=== PATIENT | male | born 1950 | race Caucasian/White ===

== ENCOUNTER 2017-03-01 08:08 | Emergency (ER) | payer MEDICARE, OTHER ==
[~2017-03-01] VITALS: Ht 180.3 cm; Wt 85.7 kg
[~2017-03-01 08:08] MED LIST: ACETAMINOPHEN500 MG PO; ACYCLOVIR400 MG PO; ACYCLOVIR800 MG PO; ATORVASTATIN CA40 MG PO; AZITHROMYCIN250 MG PO; BUPROPION XL150 MG PO; CLONAZEPAM2 MG PO; COREG25 MG PO; COUMADIN6 MG PO; DIGOXIN250 MCG PO; GLUCOPHAGE XR500 MG PO; LASIX40 MG PO; LEVAQUIN500 MG PO; METFORMIN HCL500 M1 PO; METFORMIN HCL500 MG PO; NITROSTAT0.4 MG SL; PRAVACHOL40 MG PO; PREDNISONE20 MG PO; PROVENTIL HFA6.7 GM INH; RAMIPRIL10 MG PO; TAMSULOSIN HCL0.4 MG PO; THERAPEUTIC M1 EAC2 PO; TRAMADOL HCL50 MG PO; VITAMIN D5000 UNIT PO
[2017-03-01] MEDS ORDERED: GLIMEPIRIDE1 MG PO (08:42)
[2017-03-01] MEDS ORDERED: ELIQUIS5 MG PO (08:42)
[2017-03-01] MEDS ORDERED: PRAMIPEXOLE D0.25 MG PO (08:43)
[2017-03-01] MEDS ORDERED: MIRAPEX0.125 MG PO (08:43)
[2017-03-01] MEDS ORDERED: PREDNISONE20 MG PO (14:02)
[2017-03-01] MEDS ORDERED: ZITHROMAX250 MG PO (14:02)
--- NOTE | 2017-03-03 08:02 | EKG ---
[facility] [address] [place] [address] Signed Atrial-sensed ventricular-paced rhythm with premature atrial complexes with aberrant conduction Biventricular pacemaker detected Abnormal ECG Confirmed by LANE JOLLEY MD ([id number]) on 03/03/2017 8:02:14 AM Electronically Signed By: LANE JOLLEY MD 03/03/17 0802 PATIENT NAME: AMELIEROMINA CARTER Electrocardiogram DATE OF : 46 PHYSICIAN: LANE JOLLEY MD REPORT #: [id number] REPORT IS CONFIDENTIAL AND NOT TO BE RELEASED WITHOUT AUTHORIZATION
== END 2017-03-01 14:21 | disposition home or self-care (01) ==
LOC: ED 08:08
DX: J44.1 Chronic obstructive pulmonary disease with (acute) exacerbation (principal); E11.9 Type 2 diabetes mellitus without complications; I10 Essential (primary) hypertension; I25.2 Old myocardial infarction; I48.91 Unspecified atrial fibrillation; Z95.0 Presence of cardiac pacemaker; F17.200 Nicotine dependence, unspecified, uncomplicated; Z95.5 Presence of coronary angioplasty implant and graft; Z95.1 Presence of aortocoronary bypass graft; Z79.899 Other long term (current) drug therapy; Z79.84 Long term (current) use of oral hypoglycemic drugs
CPT/HCPCS: 36415; 71010; 80053; 81001; 83605; 84132; 85025; 85730; 93005; 93010; 94660; 96374; 96375; 99291; J2270

== ENCOUNTER 2018-10-02 14:11 | Inpatient (IN) | payer MEDICARE, OTHER ==
[~2018-10-02] VITALS: Ht 180.3 cm; Wt 8.4 kg
--- OUTSIDE RECORDS SUMMARY | ~2018-10-02 | XMS | Clinical Summary ---
Demographics + + + | Address | [address] | | | [place] [address] | + + + | Home Phone | | + + + | Preferred Language | Unknown | + + + | Marital Status | Unknown | + + + | Scientologist Affiliation | Unknown | + + + | Race | Unknown | + + + | Ethnic Group | Unknown | + + + Author + + + | Author | [facility] [employer] [facility] | + + + | Organization | [facility] [facility] | + + + | Address | Unknown | + + + | Phone | Unavailable | + + + Support + + +---------+ + | Name | Relationship | Address | Phone | + + +---------+ + | Clara Ibanez | ECON | Unknown | | + + +---------+ + Care Team Providers + +------+ + | Care Refractory Furnace Designer Name | Role | Phone | + +------+ + | Kurt Hardy DO | PP | | + +------+ + Allergies No Known Allergies Current Medications + + +--------+---------+------+------+-------+ | Prescription | Sig. | Disp. | Refills | Star | End | Statu | | | | | | t | Date | s | | | | | | Date | | | + + +--------+---------+------+------+-------+ | Multiple | Take by mouth | | | | | Activ | | Vitamins-Minerals | daily. | | | | | e | | (CENTRUM SILVER PO) | | | | | | | + + +--------+---------+------+------+-------+ | ramipril (ALTACE) | Take 10 mg by mouth | | | | | Activ | | 10 MG capsule | 2 (two) times daily. | | | | | e | + + +--------+---------+------+------+-------+ | buPROPion | Take 150 mg by mouth | | | | | Activ | | (WELLBUTRIN XL) 150 | every morning. | | | | | e | | MG 24 hr tablet | | | | | | | + + +--------+---------+------+------+-------+ | metFORMIN | Take 500 mg by mouth | | | | | Activ | | (GLUCOPHAGE) 500 MG | 2 (two) times daily | | | | | e | | tablet | with meals. | | | | | | + + +--------+---------+------+------+-------+ | tamsulosin | Take 0.4 mg by mouth | | | | | Activ | | (FLOMAX) 0.4 MG | After dinner. | | | | | e | | capsule | | | | | | | + + +--------+---------+------+------+-------+ | atorvastatin | Take 40 mg by mouth | | | | | Activ | | (LIPITOR) 40 MG | nightly. | | | | | e | | tablet | | | | | | | + + +--------+---------+------+------+-------+ | digoxin (LANOXIN) | Take 250 mcg by | | | | | Activ | | 0.25 MG tablet | mouth daily. | | | | | e | + + +--------+---------+------+------+-------+ | furosemide (LASIX) | Take 40 mg by mouth | | | | | Activ | | 40 MG tablet | daily. | | | | | e | + + +--------+---------+------+------+-------+ | carvedilol (COREG) | Take 25 mg by mouth | | | | | Activ | | 25 MG tablet | 2 (two) times daily | | | | | e | | | with meals. | | | | | | + + +--------+---------+------+------+-------+ | clonazePAM | Take 2 mg by mouth | | | | | Activ | | (KLONOPIN) 2 MG | nightly as needed | | | | | e | | tablet | for Anxiety. | | | | | | + + +--------+---------+------+------+-------+ | apixaban (ELIQUIS) | Take 1 tablet by | 60 | 11 | 10/16 | | Activ | | 5 MG tablet | mouth 2 (two) times | tablet | | 12/03 | | e | | | daily. | | | 16 | | | + + +--------+---------+------+------+-------+ Active Problems + + + | Problem | Noted Date | + + + | Coronary artery disease involving coronary bypass graft of [place] | 08/08/2015 | | heart with angina pectoris (HCC) | | + + + + + | Last Assessment & Plan: CAD, Hx DC, Hx CABG, LVEF 53%. | | 65yo WM, with known coronary artery disease, coronary artery | | bypass surgery at age of 37 ([place], [place]). He has a CAD OPERATOR-D | | device. Is in chronic Atrial fibrillation, anticoagulated. He | | is relatively active, admits some degree of exertional shortness | | of breath, fatigue from time to time, unaware of any significant | | chest discomfort. Unaware of any palpitations, or | | lightheadedness. Denies any new visual disturbances, dysarthria, | | dysphasia, lateralizing signs or symptoms. No significant | | bleeding or bruising. No shocks from his device. We are still | | waiting for his old records. We scheduled him for device clinic | | follow-up. At his request, we changed him from warfarin to | | Eliquis 5 mg BID.Hx CABG: CABG*1986 ([facility])Hx PCI/stent: | | noHx Pacemaker/ICD: 09/02/2009, Medtronic Consulta CAD OPERATOR-D [id number], | | SN: [id number].Last Cath: Echo, 08/14/2015 [facility]): LVEDd 63mm, inferior hypokinesis, EF 53%, moderate | | LAE, mild NATALI, mild RVE, pacing catheter in RV, mild MR, mild TR, | | mild PI, estimated systolic PAP 28-33mmHgLast Stress Test, | | 09/04/2015 ([facility]): Lexiscan, suggestive of dilated | | cardiomyopathy, LVEF 31%, equivocal tiny area of ischemia in the | | inferior wall.ECG, 08/08/2015: V-paced 100%, no Atrial activity | | identified. | + + + + + | Chronic atrial fibrillation (HCC) | 08/08/2015 | + + + + + | Last Assessment & Plan: Atrial fibrillation, chronic, was on | | warfarin, but requesting change, having difficulty with | | stability. Today we DC'd the warfarin, placed him on Eliquis 5 | | mg twice daily. CHADS2 Score 3 (CHF, HTN, DM). Denies any new | | visual disturbances, dysarthria, dysphasia, lateralizing signs or | | symptoms. No significant bleeding or bruising. | + + + + + | HTN (hypertension) | 08/08/2015 | + + + + + | Last Assessment & Plan: Hypertension, controlled, continue | | current meds at current doses (carvedilol, furosemide, ramipril). | + + + + + | Hyperlipidemia | 08/08/2015 | + + + + + | Last Assessment & Plan: Hyperlipidemia, continue current meds | | at current dose (atorvastatin). Lab, 07/11/2015: Liver enzymes | | NML, K: 4.8, BUN/Cr: 24/1.3 (GFR 52), glu: 196 | | BNP: 69. HgbA1c: 8.7, WBC: 6.0, H/H: 15.3/45.7, plt: | | 278Lab, 08/26/2015: T Chol: 152, LDL-Chol: 57, HDL-Chol; 45, Trig: | | 253 | + + + + + | Diabetes mellitus (HCC) | 08/08/2015 | + + + + + | Last Assessment & Plan: DM2, managed by PCP. | + + + + + | ICD (implantable cardioverter-defibrillator), biventricular, in | 08/08/2015 | | situ | | + + + + + | Last Assessment & Plan: CAD OPERATOR-D, implanted 09/02/2009. | | Medtronic Consulta CAD OPERATOR-D [id number], SN: [id number].Last | | interrogation ? Will arrange for follow-up. | + + Family History + +------+ + + | Relation | Name | Status | Comments | + +------+ + + | Brother | | | open heart | | | | (Age | | | | | 70) | | + +------+ + + | Father | | | DC-aneurysm | | | | (Age | | | | | 78) | | + +------+ + + | Mother | | | cancer | | | | (Age | | | | | 50) | | + +------+ + + Social History + + + +--------+ + | Tobacco Use | Types | Packs/Day | Years | Date | | | | | Used | | + + + +--------+ + | Former Smoker | Cigarettes | 2 | 38 | Quit: 05/17/2015 | + + + +--------+ + + +------+---+---+ | Smokeless Tobacco: | Chew | | | | Current User | | | | + +------+---+---+ + + +---------+ + | Alcohol Use | Drinks/We | oz/Week | Comments | | | ek | | | + + +---------+ + | Yes | 1 | 0.6 | beer-twice month | | | Standard | | | | | drinks or | | | | | | | | | | equivalen | | | | | t | | | + + +---------+ + + + + | Sex Assigned at | Date Recorded | | | | + + + | Not on file | | + + + Last Filed Vital Signs + + + + | Vital Sign | Reading | Time Taken | + + + + | Blood Pressure | 132/70 | 09/11/2015 11:43 AM PDT | + + + + | Pulse | 74 | 09/11/2015 11:43 AM PDT | + + + + | Temperature | - | - | + + + + | Respiratory Rate | 16 | 09/11/2015 11:43 AM PDT | + + + + | Oxygen Saturation | 96% | 09/11/2015 11:43 AM PDT | + + + + | Inhaled Oxygen | - | - | | Concentration | | | + + + + | Weight | 88.4 kg (194 lb 14.4 | 09/11/2015 11:43 AM PDT | | | oz) | | + + + + | Height | 182.9 cm (6') | 09/11/2015 11:43 AM PDT | + + + + | Body Mass Index | 26.43 | 09/11/2015 11:43 AM PDT | + + + + Plan of Treatment + + + + + | Health Maintenance | Due Date | Last Done | Comments | + + + + + | Diabetic Eye Exam | | | | | | 8 | | | + + + + + | Diabetic Foot Exam | | | | | | 8 | | | + + + + + | Hemoglobin A1c | | | | | | 8 | | | + + + + + | Microalbumin | | | | | Screening | 8 | | | + + + + + | Vaccine: | | | | | Dtap/Tdap/Td (1 - | 7 | | | | Tdap) | | | | + + + + + | Colon Cancer | | | | | Screening | 8 | | | | (Colonoscopy) | | | | + + + + + | Vaccine: Zoster (1 | | | | | of 2) | 8 | | | + + + + + | Lung Cancer | | | | | Screening | 3 | | | + + + + + | Vaccine: | | | | | Pneumococcal 65+ | 3 | | | | Low/Medium Risk (1 | | | | | of 2 - PCV13) | | | | + + + + + | Vaccine: Influenza | | | | | (Season Ended) | 9 | | | + + + + + Results Not on filefrom Last 3 Months Insurance + +--------+ +------+-------+ + | Payer | Benefi | Subscriber | Type | Phone | Address | | | t Plan | ID | | | | | | / | | | | | | | Group | | | | | + +--------+ +------+-------+ + | MEDICARE | MEDICA | [id number] | | | [address] | | | RE | | | | [place] [address] | | | IP-OP | | | | | + +--------+ +------+-------+ + | MEDICAID | [employer] | [id number] | | | [address] | | | N | | | | [place] | | | [place] | | | | [address] | | | [place] | | | | | + +--------+ +------+-------+ + + +--------+ +--------+ + + | Guarantor Name | Accoun | Relation to | Date | Phone | Billing Address | | | t Type | Patient | of | | | | | | | | | | + +--------+ +--------+ + + | RUI KAPLAN | Person | Self [birth year] Home: | [address] | | | al/Fam | | 1950 | [phone] [place] | | | [place] | | | [phone] | [phone] | + +--------+ +--------+ + +"
--- OUTSIDE RECORDS SUMMARY | ~2018-10-02 | XMS | Clinical Summary ---
Demographics + + + | Address | [address] | | | [place] [address] | + + + | Home Phone | | + + + | Preferred Language | Unknown | + + + | Marital Status | Unknown | + + + | Protestant Affiliation | Unknown | + + + | Race | Unknown | + + + | Ethnic Group | Unknown | + + + Author + + + | Author | [facility] | + + + | Organization | [facility] | + + + | Address | Unknown | + + + | Phone | Unavailable | + + + Support + + +---------+ + | Name | Relationship | Address | Phone | + + +---------+ + | Clara Ibanez | ECON | Unknown | | + + +---------+ + Care Team Providers + +------+ + | Care Subcontract Manager Name | Role | Phone | + [...] artery disease involving coronary bypass graft of [place] | 08/08/2015 | | heart with angina pectoris (HCC) | | + + + + + | Last Assessment & Plan: CAD, Hx LA, Hx CABG, LVEF 53%. | | 65yo WM, with known coronary artery disease, coronary artery | | bypass surgery at age of 37 ([place], [place]). He has a ASSISTANT PROFESSOR OF BUSINESS-D | | device. Is in chronic Atrial [...] | Eliquis 5 mg BID.Hx CABG: CABG*1986 ([facility])Hx PCI/stent: | | noHx Pacemaker/ICD: 09/02/2009, Medtronic Consulta ASSISTANT PROFESSOR OF BUSINESS-D [id number], | | SN: [id number].Last Cath: Echo, 08/14/2015 ([facility] | | [facility]): [...] + + | Last Assessment & Plan: ASSISTANT PROFESSOR OF BUSINESS-D, implanted 09/02/2009. | | Medtronic Consulta ASSISTANT PROFESSOR OF BUSINESS-D [id number], SN: [id number].Last | | interrogation ? Will arrange for follow-up. | + + Family History + +------+ + + | Relation | Name | Status | Comments | + +------+ + + | Brother | | | open heart | | | | (Age | | | | | 70) | | + +------+ + + | Father | | | LA-aneurysm | | | | (Age | | [...] +------+-------+ + | MEDICARE | MEDICA | [id number] | | | [address] | | | RE | | | | [place] [address] | | | IP-OP | | | | | + +--------+ +------+-------+ + | MEDICAID | [employer] | [id number] | | | [address] | | | N | | | | [place] | | | [place] | | | | [phone] | | | DOCUMENT ADVISOR | | | | | + +--------+ [...] | [place] | | | [phone] | [phone] | + +--------+ +--------+ + +"
[~2018-10-02 14:11] MED LIST changes: +AMARYL2 MG PO; +ELIQUIS5 MG PO; +GLUCOPHAGE1000 MG PO; -METFORMIN HCL500 M1 PO; +MIRAPEX0.125 MG PO; +PRAMIPEXOLE D0.25 MG PO; +ZITHROMAX250 MG PO
--- OUTSIDE RECORDS SUMMARY | 2018-10-02 14:14 | XMS ---
PreManage Notification: ROMINA KINSEY Security Entrepreneurship Program Director Events No recent Security Events currently on file CRITERIA MET - [facility] - 2 Visits in 30 Days CARE PROVIDERS There are no care providers on record at this time. Elidia has no Care Guidelines for this patient. Sonali VISIT COUNT (12 MO.) [address] TOTAL 4 NOTE: Visits indicate total known visits. ED/C VISIT TRACKING (12 MO.) 10/02/2018 14:[address] [facility] TYPE: Emergency COMPLAINT: - BODY SWELLING 10/01/2018 14:14 [facility] OR TYPE: Emergency COMPLAINT: - RADICULOPATHY; DEPENDENT EDEMA; SCIATICA 09/27/2018 20:53 [facility] OR TYPE: Emergency COMPLAINT: - R FLANK/ RADICULAR L3-L4, ACUTE ANEMIA SECONDARY TO GI BLEED, ANTICOAG, CHRONIC RF, SLEEP HYPOXIA, RLS 09/15/2018 21:37 [facility] OR TYPE: Emergency COMPLAINT: - COPD EXACERBATION; CHF; ANEMIA INPATIENT VISIT TRACKING (12 MO.) 09/16/2018 00:10 [facility] OR TYPE: Medical Surgical COMPLAINT: - COPD EXACERBATION; CHF; ANEMIA 10/26/2017 05:46 [facility] TYPE: Surgery DIAGNOSES: - Type 2 diabetes mellitus without complications - Essential (primary) hypertension - Ischemic cardiomyopathy - Chronic obstructive pulmonary disease, unspecified - Calculus of gallbladder without cholecystitis without obstruction - Other fdc (current) drug therapy - Atherosclerotic heart disease of [place] coronary artery without angina pectoris [email or web address]
[2018-10-02] MEDS ORDERED: K-TAB ER20 MEQ PO (14:58)
[2018-10-02] MEDS ORDERED: NEURONTIN300 MG PO (15:00)
[2018-10-02] MEDS ORDERED: MIRAPEX0.25 MG PO (15:00)
[2018-10-02] MEDS ORDERED: SYMBICORT 16010.2 GM INH (15:01)
[2018-10-02] MEDS ORDERED: VITAMIN B COMP1 EACH PO (15:02)
[2018-10-02] MEDS ORDERED: VITAMIN A8000 UNIT PO (15:02)
[2018-10-02] MEDS ORDERED: VITAMIN C500 M1 PO (15:03)
[2018-10-02] MEDS ORDERED: CO Q-10200 MG PO (15:03)
[2018-10-02] MEDS ORDERED: ROBAXIN500 MG PO (15:05)
--- NOTE | 2018-10-02 19:38 | NUR ---
New admit to the floor. Pt alert and oriented x3. Pt on ra, resp even and non labored. Oriented pt to room and call light. No needs at this time. Tele placed.
--- NOTE | 2018-10-02 19:45 | NUR ---
REPORT RECEIVED FROM DAY SHIFT RNKAREN. PT LYING IN BED A&OX3. PT C/O PAINFUL CRAMPING IN HIS RIGHT THIGH AND LEFT FOREARM. HOT PACKS PROVIDED FOR PT COMFORT. PT INSTRUCTED TO CALL FOR ASSISTANCE WHEN NEEDING TO GET OUT OF BED. PT VERBALIZES UNDERSTANDING. PT DENIES REQUESTS AT THIS TIME. CALL LIGHT IN REACH.
--- NOTE | 2018-10-02 21:45 | NUR ---
ROUNDED CHARGE. PATIENT IS RESTING IN BED. PATIENT DENIES ANY COMMENTS, QUESTIONS, OR CONCERNS. NO NEEDS NOTED. CALL LIGHT IN REACH.
--- NOTE | 2018-10-02 22:07 | NUR ---
MADE A HOT PACK FOR PT'S THIGH AREA PER PT AND HIS RN LISBET. PT NEEDS NOTHING MORE AT THIS TIME.
--- NOTE | 2018-10-02 23:46 | NUR ---
PT UP ON THE SIDE OF THE BED C/O 9/10 CRAMPING PAIN IN HIS RIGHT THIGH AND LEFT FOREARM. MEDICATED PT WITH PRN MEDS. HOT PACKS PROVIDED PER PT REQUEST. SBA WITH FWW TO BR TO VOID 400 ML CLEAR YELLOW URINE. PT TOLERATED FAIR. C/O NOT BEING ABLE TO BEAR MUCH WEIGHT ON HIS RIGHT LEG. PT BACK TO BED. CALL LIGHT IN REACH.
--- NOTE | 2018-10-02 23:50 | NUR ---
PT UP TO SIDE OF THE BED C/O 11/23 RIGHT THIGH AND LEFT FOREARM PAIN. PT STATES HIS PAIN IS UNRELIEVED BY PRN PAIN MEDICATIONS. HOT PACKS PROVIDE SOME COMFORT. PT CONTINUES TO SET ON THE EDGE OF THE BED DRINKING COFFEE. CALL LIGHT IN REACH.
--- NOTE | 2018-10-03 00:30 | NUR ---
PT UP TO RECLINER WITH FEET ELEVATED, DOZING ON AND OFF. RR EVEN AND UNLABORED. K-PAD PROVIDED FOR RIGHT HIP DISCOMFORT. CALL LIGHT IN REACH.
--- NOTE | 2018-10-03 02:28 | NUR ---
VITALS AND I&OS DONE AND CHARTED. HELPED PT BACK TO BED FROM THE CHAIR. BEDSIDE TABLE AND CALL LIGHT IN REACH.
--- NOTE | 2018-10-03 02:40 | NUR ---
PT IN BED WATCHING TV WITH K-PAD TO RIGHT THIGH. MEDICATED WITH PRN OXYCODONE FOR C/O 4-11/23 RIGHT THIGH PAIN. ICE CHIPS PROVIDED PER PT REQUEST. NO OTHER REQUESTS AT THIS TIME. CALL LIGHT IN REACH.
--- NOTE | 2018-10-03 03:15 | NUR ---
PT UP TO BR WITH ONE PERSON STANDBY ASSIST. PT STILL C/O NOT BEING ABLE TO BEAR FULL WEIGHT ON RIGHT LEG WITHOUT PAIN. PT BACK TO BED WITH K-PAD TO RIGHT THIGH. LOWER EXTREMETIES ELEVATED AND WRAPPED. NO OTHER REQUESTS AT THIS TIME.
--- NOTE | 2018-10-03 05:46 | NUR ---
PT PAINFUL THROUGHOUT THE NIGHT, MEDICATED EVERY FOUR HOURS WITH PRN PAIN MEDICATION FOR RIGHT THIGH/LEG AND LEFT ARM PAIN. HOT PACKS AND K-PAD PROVIDED FOR PT COMFORT. CHAD WILKS WRAPPED PER MD ORDER. PT IS A ONE PERSON SBA W/FWW. 1800ML FLUID RESTRICTION, ADA AND 2GR NA DIET. TELE #6. DAILY WEIGHT.
--- NOTE | 2018-10-03 06:10 | NUR ---
PT RESTING IN BED WITH EYES CLOSED. RR 16 EVEN AND UNLABORED. K-PAD TO RIGHT THIGH AREA. ASSESSMENT COMPLETE. CALL LIGHT IN REACH.
--- NOTE | 2018-10-03 06:37 | NUR ---
PATIENT ASSISTED TO THE RESTROOM. PATIENT IS A SBA W/FWW. PATIENT WAS ABLE TO VOID. PATIENT IS BACK IN BED SITTING ON THE EDGE OF THE BED. PATIENT RATES PAIN AT A 6/10. PATIENT GIVEN PRN PAIN MEDICATION PER ORDER. PATIENTS VITALS TAKEN AND RECORDED. PATIENTS DW TAKEN AND RECORDED. PATIENT DENIES ANY NEEDS AT THIS TIME. CALL LIGHT IN REACH.
--- NOTE | 2018-10-03 10:45 | NUR ---
Admin oxycodone 5mg po for reports of 6/10 right leg pain.
--- NOTE | 2018-10-03 10:54 | NUR ---
VS AND I&O'S TAKEN AND DOCUMENTED. PT STATES THAT HE HAS NO NEEDS AT THIS TIME. INFORMED PT TO CALL IF HE NEEDS ANYTHING. PT STATES THAT HE UNDERSTANDS. CALL LIGHT IS IN REACH.
--- NOTE | 2018-10-03 11:15 | NUR ---
THIS RN ASSUMING CARE OF PT. REPORT RECEIVED FROM LISA SMITH. PT REPORTS OCCATIONAL CRAMPING IN RIGHT LEG AND LEFT ARM. PT STATES CRAMPING IS TOLERABLE AT THIS TIME. PT DENIES REQUESTS OR COMPLAINTS AT THIS TIME. CALL LIGHT WITHIN REACH.
--- NOTE | 2018-10-03 12:06 | NUR ---
PT ALERT, ORIENTED AND SUPPORTED BY FAMILY AT . PT SHOWS GOOD SENSE OF HUMOR AND WNATS "ICE CREAM". WHEN PT FOUND OUT MY TITLE, HE SAID, "I DON'T HAVE ANY PLANS ON DYING TODAY, ESPECIALLY SINCE I HAVEN'T HAD MY ICE CREAM YET"! PT'S RN JENNIFER SAID MAYBE AFTER HIS TEST RESULTS LATER THIS AFTERNOON. EXTENDED A BLESSING, WILL FOLLOW NEEDED
[2018-10-03] MEDS ORDERED: CLOPIDOGREL75 MG PO (12:27)
--- NOTE | 2018-10-03 12:30 | NUR ---
NOON ASSESSMENT AND MEDICATION DUE. INSULIN AND MIRALAX HELD PER MD ORDER. PT TAKES SENNA AND ZANAFLEX WITH SMALL SIP OF WATER. IV LASIX GIVEN. PT REPORTS 3/10 PAIN THAT IS TOLERABLE BUT HE WOULD LIKE TO TRY ADDITIONAL MEDICATION. ASSESSMENT DONE. PT STATES SWELLING SEEMS "A LOT BETTER IN MY FEET." PT AWAITING ULTRASOUND. EDUCATIONS REGARDING PT CONDITION AND PLAN OF CARE DONE WIHT PT AND FAMILY. PT AND FAMILY VERBLAIZE UNDERSTANDING. NO ADDITIONAL REQUESTS OR COMPLAINTS AT THIS TIME. CALL LIGHT WITHIN REACH.
[2018-10-03] MEDS ORDERED: FISH OIL 1,0001 EAC5 PO (12:31)
[2018-10-03] MEDS ORDERED: VITAMIN D31000 UNIT PO (12:31)
[2018-10-03] MEDS ORDERED: COMBIVENT RESPIM4 GM INH (13:06)
[2018-10-03] MEDS ORDERED: IPRAT-ALBUT 0.5-3 ML INH (13:06)
[2018-10-03] MEDS ORDERED: VENTOLIN HFA18 GM INH (13:07)
--- NOTE | 2018-10-03 13:08 | NUR ---
Medications reconciled using pharmacy records, patient's own medication list and interview with patient and . Apixaban recently discontinued due to anemia. Patient had trial of lovastatin and atorvastatin over several months, but discontinued due to muscle pain and cramping that he feels has improved since discontinuation.
--- NOTE | 2018-10-03 14:44 | NUR ---
VS AND I&O'S TAKEN AND DOCUMENTED. PT'S ONLY REQUEST IS ICE CHIPS. DINNER HAS BEEN ORDERED. INFORMED PT TO CALL IF HE NEEDS ANYTHING ELSE. CALL LIGHT IN REACH.
--- NOTE | 2018-10-03 14:49 | NUR ---
ULTRASOUND COMPLETE. PT REQUESTS FOOD AND DRINK. CHICKEN AND CHEESE QUSIDILLA ORDRED FOR PT. CHEESE STICK AND SUGAR FREE JELLO PROVIDED WHILE PT WAITS FOR FOOD. MEDICATIONS THAT WERE HELD EARLIER GIVEN AT THIS TIME. PT WATCHING TV AND VISITING WITH . NO ADDITIONAL REQUESTS OR COMPLAINTS AT THIS TIME. CALL LIGHT WITHIN REACH.
--- NOTE | 2018-10-03 17:10 | NUR ---
AFTERNOON ASSESSMENT DUE. PT JUST WOKE UP FROM [facility]. DINNER ORDER PLACED PER PT REQUEST. PT REPORTS 7/10 CRAMPING PAIN IN RIGHT THIGH. MEDICATION GIVEN, WARM PACK PROVIDED. ASSESSMENT DONE. PT REPORTS ABDOMEN "SEEMS BETTER, SOFTER." ABDOMEN CONTINUES TO BE DISTENDED BUT IS SOFT TO PALPITATION. +2 EDEMA CONTINUES IN FEET/LEGS. LEGS WRAPPED. PT REPORTS "THAT OTHER DOCTOR SAID THESE WRAPS NEED TO BE TIGHTER." SBA, FWW UP TO RESTROOM. PACED RHYTHEM ON TELE #6. PT CONTINUES CHEWING ICE AND HAS QUESTIONS ABOUT HIS ANEMIA INCLUDING "SHOULD I BE TAKIGN IRON."PTS AT BEDSIDE. NO ADDITIONAL REQUESTS OR COMPLAINTS AT THIS TIME. CALL LIGHT WITHIN REACH. FALL PRECAUTIONS REVIEWED WITH PT. PT VERBALIZES UNDERSTANDING.
--- NOTE | 2018-10-03 18:07 | NUR ---
THIS RN TO ROOM TO CHECK ON PT. PT FINISHED WITH DINNER AND WATCHING TV. PT REPORTS THE LEG PAIN IS "MUCH BETTER." WITH THE HEAT PACK. PT DENIES ADDITIONAL REQUESTS OR COMPLAINTS AT THIS TIME. CALL LIGHT WITHIN REACH. AT BEDSIDE. BED RAILS UP.
--- NOTE | 2018-10-03 18:16 | NUR ---
PT HERE FOR ANASARCA. SBA, FWW WITH IV LASIX GIVEN THIS SHIFT. PT TOLERATING AMBULATION WELL. PRN PAIN MEDICATIONS GIVEN FOR "CRAMPING" PAIN IN RIGHT LEG AND LEFT ARM. PT TOLERATING ADA DIET AND 1800ML FLUID RESTRICTION WELL. TELE #6 SHOWS PACED RHYTHEM THIS SHIFT. ABDOMINAL ULTRASOUND COMPLETED THIS SHIFT. PT CONCERNED ABOUT BOWEL MOVMENTS (MEDICATION GIVEN.). DAILY WEIGHT. VOIDING QUANTITY SUFFICIENT. PT USES CALL LIGHT APPROPRIATLY.
--- NOTE | 2018-10-03 18:25 | NUR ---
THIS RN TO ROOM TO CHECK ON PT. PTS STATES SHE HAS BEEN THINKING ABOUT "WHEN THIS LEG PAIN STARTED." PTS STATES PT WENT TO HOSPITAL ON THE September WHERE HE WAS GIVEN MEDICATION FOR COPD AND AFTER THAT THE LEG CRAMPS STARTED. PT AGREES WITH WIFES ASSESSMENT. PT DENIES PAIN AT THIS TIME AND STATES "THE HEAT REALLY HELPED." BED RAILS UP. CALL LIGHT WITHIN REACH.
--- NOTE | 2018-10-03 18:47 | NUR ---
VS AND I&O'S TAKEN AND DOCUMENTED. PT STATES HE HAS NO NEEDS AT THIS TIME. INFORMED PT TO CALL IF HE NEEDS ANYTHING. CALL LIGHT IS IN REACH.
--- NOTE | 2018-10-03 19:45 | NUR ---
RECEIEVED REPORT FROM DAY SHIFT RN, JENNIFER. PT SITTING UP IN BED, ALERT AND ORIENTED. AT BEDSIDE. K-PAD TO THE RIGHT THIGH. TELE #[address], HR IN THE 60'S. PT COMPLIANT WITH 1800 ML FLUID RESTRICTION. BILAT LE WRAPPED IN LINDA WRAPS. NO C/O SOB, RR EVEN AND UNLABORED. NO OTHER REQUESTS AT THIS TIME. CALL LIGHT IN REACH.
--- NOTE | 2018-10-03 21:11 | NUR ---
PT CALLED, NEEDED TO USE BATHROOM. SBA TO BR, WITH LIMPING RELATED HIS RIGHT LEGG.
--- NOTE | 2018-10-03 21:45 | NUR ---
ASSESSMENT COMPLETE. PM MEDS GIVEN WITHOUT DIFFICULTY. PT C/O 09/23 IN THE RIGHT THIGH. PRN PAIN MEDICATION GIVEN PER PT REQUEST. K-PAD STILL TO THE RIGHT THIGH. LOTION APPLIED TO THE PT'S BILAT LE AND BACK DUE TO COMPLAINTS OF ITCHING. PT UP TO AMBULATE THE PALACIOS WITH CAD CAM PROGRAMMER.
--- NOTE | 2018-10-04 00:10 | NUR ---
PT RESTING IN BED WITH EYES CLOSED. RR EVEN AND UNLABORED. CALL LIGHT IN REACH.
--- NOTE | 2018-10-04 01:45 | NUR ---
PT UP TO BR WITH SBA AND FWW, TEODORA FAIR. LIMP NOTED ON THE RIGHT SIDE. PT C/O 8/10 PAIN IN THE RIGHT THIGH. PRN PAIN MEDICATION GIVEN. ASSESSMENT COMPLETE. K-PAD TO RIGHT THIGH. NO OTHER REQUESTS AT THIS TIME. CALL LIGHT IN REACH.
--- NOTE | 2018-10-04 04:14 | NUR ---
PT UP TO BR WITH BOX LINING MACHINE FEEDER. BACK TO BED, C/O 8/10 RIGHT THIGH PAIN. MEDICATED WITH PRN TIZANIDINE. PT STATES PRN PAIN MEDICATION WAS NOT EFFECTIVE IN BRINGING HIS PAIN DOWN. K-PAD IN PLACE. CALL LIGHT IN REACH.
--- NOTE | 2018-10-04 05:51 | NUR ---
PT WAS ABLE TO GET MORE REST THIS SHIFT THAN THE LAST NOC SHIFT. PT STILL C/O 7-12/24 RIGHT THIGH PAIN AND EXPRESSES FRUSTRATION BECAUSE HE DOES NOT KNOW WHAT'S CAUSING IT. STATES HE DOES GET SOME RELIEF FROM THE K-PAD AND OXYCODONE. PT ABULATED THE PALACIOS WITH STANDBY ASSIST X2. PT REMAINS COMPLIANT WITH 1800ML FLUID RESTRICTION.
--- NOTE | 2018-10-04 06:28 | NUR ---
PATIENT WAS ABLE TO AMBULATE IN THE HALLWAY A SBA W/FWW. PATIENT TOELRATED AMBULATION WELL. PATIENT IS NOW BACK IN BED RESTING. KPAD IN PLACE. CALL LIGHT IN REACH,.
--- NOTE | 2018-10-04 07:21 | NUR ---
REPROT RECEIVED FROM SARAH DIXON. PT RESTING IN BED, ECHO TECHNITIAN AT BEDSIDE PERFORMING ECHO. BED RAILS UP. CALL LIGHT WITHIN REACH.
--- NOTE | 2018-10-04 09:16 | NUR ---
MORNING ASSESSMENT DUE. PT REPORTS 5/10 CRAMPING LEG PAIN (SEE MAR FOR MEDICATION GIVEN). PT CHEERFUL THIS MORNING AND MAKING JOKES. 1PA, FWW UP TO CHAIR FOR BREAKFAST. ASSESSMENT DONE. INCREASED SWELLING IN FEET AND BLE COMPARED TO YESTERDAYS ASSESSMENT. MEDICATIONS GIVEN. PT EATING BREAKFAST. NO ADDITIONAL REQUESTS OR COMPLAINTS AT THIS TIME. CALL LIGHT WITHIN REACH. FAMILY AT BEDSIDE.
--- NOTE | 2018-10-04 10:49 | NUR ---
THIS RN TO ROOM TO CHECK ON PT. PT RESTING IN CHAIR WITH EYES CLOSED. RR 18 BPM, EVEN AND UNLABORED. CHAIR ALARM ON. CALL LIGHT WITHIN REACH.
--- NOTE | 2018-10-04 13:00 | NUR ---
NOON ASSESMENT DUE. NEW MEDICATION ORDERS. PT SITTING UP IN BED. ORIENTED TO ALL. PT STATES HE WAS CONFUSED AFTER HIS NAP BUT IS "FEELING MUCH BETTER." PT DENIES PAIN AND NAUSEA. ASSESSMENT DONE. LEG EDEMA IMPROVED. MEDICATIONS GIVEN. PT TALKING ON PHONE. NO ADDITIONAL REQUESTS OR COMPLAINTS. CALL LIGHT WITHIN REACH.
--- NOTE | 2018-10-04 13:53 | NUR ---
PT SITTING UP IN BED, FINISHING UP LUNCH- AT . HE WAS EATING GREEN JELLO AND MADE A COMMENT THAT HE STILL HADN'T GOTTEN HIS ICE CREAM YET. PT STILL HAS HIS SENSE OF HUMOR AND WE HAD A LAUGH ABOUT IT. EXTENDED A BLESSING,AND I WILL CONTINUE TO FOLLOW NEEDED
--- NOTE | 2018-10-04 14:53 | NUR ---
PT SHOWERED WITH WIFES ASSISTANCE. NEW GOWN AND SOCKS GIVEN. LINEN CHANGED. PT COMFORTABLE.
--- NOTE | 2018-10-04 16:45 | NUR ---
AFTERNOON ASSESSMENT DUE. PT SITTING ON EDGE OF BED VISITING WITH FAMILY. PT REPORTS 5/10 PAIN, SEE MAR FOR MEDICATION GIVEN. PT CONTINUES TO REPORT CONSTIPATION. PT ALSO CONTINUES TO REPORT CRAMPING PAIN IN RIGHT LEG, LEFT ARM AND LEFT AXILLIARY AREA. SWELLING CONTINUES TO BE NOTED IN BLE AND TRACE AMOUTNS IN ABDOMEN. ASSESSMENT DONE. MEDICATION GIVEN. PT DEMONSTRATES USE OF I.S. REACHING 2500. CHF EDUCATION DONE. PT DEMONSTRATES UNDERSTANDING STATING HE IS IN THE "YELLOW" ZONE TODAY. SBA, FWW UP TO RESTROOM. PT EATING DINNER. CALL LIGHT WITHIN REACH. AT BEDSIDE.
--- NOTE | 2018-10-04 18:46 | NUR ---
PT HERE FOR ANASARCA AND CHF EXACERBATION. CHF EDUCATION DONE TODAY, ENCORUAGING PT TO TRACK WEIGHT AND GREEN/YELLOW/RED ZONES. PT TOELRATING 60G CARB DIET WITH SODIUM RESTRICTION. TELE DC'D THIS SHIFT. ECHO DONE THIS SHIFT. LEG WRAPS REMOVED. PT AGREES TO TRY CPAP THIS EVENING WITH SLEEP. DAILY WEIGHT. IV LASIX GIVEN THIS SHIFT. SHOWER TODAY. PT USES CALL LIGHT INCONSISTANTLY.
--- NOTE | 2018-10-04 19:22 | NUR ---
CHARGE NURSE ROUNDS WITH DAY CHARGE. DENIES NEEDS AT THIS TIME.
--- NOTE | 2018-10-04 19:51 | NUR ---
REPORT RECEIVED FROM DAY SHIFT RN, JENNIFER. PT IN BED RESTING WITH KPAD TO RIGHT THIGH. ALERT AND ORIENTED. AT BED SIDE. NO REQESTS AT THIS TIME. CALL LIGHT IN REACH.
--- NOTE | 2018-10-04 22:00 | NUR ---
PM MEDICATIONS GIVEN WITHOUT DIFFICULTY. PRN PAIN MEDICATION GIVEN PER PT REQUEST C/O 10/24 RIGHT THIGH PAIN/CRAMPING. ASSESSMENT COMPLETE. KPAD TO RIGHT THIGH. PT WATCHING TV IN BED, NO OTHER REQUESTS AT THIS TIME. CALL LIGHT IN REACH.
--- NOTE | 2018-10-04 23:09 | NUR ---
PT UP TO AMB 3X AROUND NURSING UNIT WITH FWW AND SBA TO RELIEVE PAIN/CRAMPING IN RIGHT THIGH. TEODORA FAIR. PT DENIES PAIN RELIEF. BACK TO BED, PT C/O BEING SOB. O2 SATS 92% ON RA, RR 22. PT STATES PRN PAIN MEDICATION AND/OR HEAT THERAPY ARE NO LONGER EFFECTIVE IN CONTROLLING HIS PAIN. ELEVATED RIGHT LEG WITH TWO PILLOWS IN AN ATTEMPT TO PROVIDE COMFORT. CALL LIGHT IN REACH.
--- NOTE | 2018-10-05 02:23 | NUR ---
PT RESTING IN BED WITH EYES CLOSED. RR EVEN AND UNLABORD. KPAD TO RIGHT THIGH. CALL LIGHT IN REACH.
--- NOTE | 2018-10-05 04:15 | NUR ---
PT UP TO BR WITH SBA AND FWW. PT TEODORA WELL. BACK TO BED REQUESTED PRN PAIN MEDICATION FOR 6/10 RIGHT THIGH PAIN. CALL LIGHT IN REACH.
--- NOTE | 2018-10-05 05:48 | NUR ---
PT RESTED WELL. PRN PAIN MEDIATION GIVEN X 2. KPAD TO THE RIGHT THIGH. PT EXPRESSED HIS FRUSTRATION THAT MEDICATION AND HEAT ARE NO LONGER WORKING TO CONTROL HIS PAIN. ATTEMPTED TO ELEVATE RLE TO PROVIDE COMFORT WITHOUT SUCCESS. PT ON 1800 ML FLUID RESTRICTION, PT REMAINED WITHIN LIMITS. PT C/O NOT HAVING A BOWEL MOVEMENT IN 5 OR 6 DAYS. STOOL SOFTENERS ADMINISTERED LAST NIGHT WITH NO RESULTS YET.
--- NOTE | 2018-10-05 06:39 | NUR ---
PT IN BED RESTING. VS, I & O, DAILY WEIGHT COMPLETE. COFFEE AND ICE CHIPS PROVIDED PER PT REQUEST. C/0 09/23 PAIN. STATES "I'M GETTING USED TO IT, IT DOESN'T MATTER ANYMORE".
--- NOTE | 2018-10-05 06:49 | NUR ---
PATIENTS VITALS TAKEN AND RECORDED. PATIENTS INTAKE AND OUTPUT RECORDED. STUDENT RN IN ROOM. STUDENT RN COMPLETED EDUCATION ON DW AND CHF EDUCATION HANDBOOK. DW TAKEN AND RECORDED.
--- NOTE | 2018-10-05 07:34 | NUR ---
REPORT RECIEVED ON PT. PT UP IN ROOM IN BATHROOM, AM CARES DONE AT SINK, LOOKING FORWARD TO BREAKFAST, DENIES ANY NEEDS AT THIS TIME.
--- NOTE | 2018-10-05 07:40 | NUR ---
helped pt. to the bathroom and he is now up to the chair with his call light and we got his breakfast ordered.
--- NOTE | 2018-10-05 08:23 | NUR ---
Patient was awake sitting on the edge of his bed , breakfast was ordered. patient will go for a walk after breakfast, call light in reach.
--- NOTE | 2018-10-05 13:07 | NUR ---
pt reports pain is well managed at this time he does not want tylenol that is available and offered at this time. pt's spouse at bedside said he is sleeping so he must be comfortable for now.
--- NOTE | 2018-10-05 13:27 | NUR ---
PT SLEEPING, AT BS. WILL RETURN LATER
--- NOTE | 2018-10-05 14:55 | NUR ---
PT HAD LARGE BM, REFUSED SECOND DOSE OF LACTULOSE AT THIS TIME, OXYCODONE GIVEN FOR C/O CRAMPS IN R LEG AFTER GETTING UP.
--- NOTE | 2018-10-05 16:47 | NUR ---
Certified Heart Failure Nurse Notes: Diagnosis: HFrEF, harrisonnemo Groundskeeper- Dr Watt in [place] PCP: Date of echocardiogram 10/05/18 EF 35-40% Home meds include Beta Jane and Fausto Inhibitor Admit Wt.: 199 lb Today's Wt.: 196 lb Dry weight not stated Admit BNP: 135 Social support system: S.Rodolfo Siri is at bedside. Patient was asleep during most of this visit. Patient lives in [place] Weight monitoring: Scale present in home. Identifies how to weigh daily/ identifies when to notify PCP Symptom management: Addressed monitoring and reporting changes in weight or symptoms utilizing Zones form Transportation mode: Siri states patient only drives in their town and she takes him to appointments. Diet: Siri states she cooks most meals from scratch. She follows low carb low salt instructions but states patient doesn't always follow the guidelines. He enjoys ice cream and potatoes. He will not eat unsalted nuts. Dines out when traveling to appointments. Encouraged her to read labels of any premade type foods. Usual physical activity: Prior to this acute episode patient was doing yard work, including push mower. Does not participate in any organized cardiac activities. Medication routine: Siri states that Bashir was starting to make mistakes with his pills a few months ago, so she has taken responsibity of filling his weekly pill box. Has sleep apnea , does not currently use CPAP. States malter operator was going to order another sleep study. History of CAD and has not attended cardiac rehabilitation. Advanced directive: Not discussed at this initial visit Screenings completed this stay: PHQ-9 and Mini-Cog deferred due to patient condition at this visit. Recommendations: Outpatient Cardiopulmonary rehabilitation. Follow up visit within 7 days of discharge from [facility]. Follow-up plans: This service will make a follow up call Teaching materials are at bedside: [facility] Heart Failure bundle folder-[facility] My Action Plan Living Well with Heart Failure book, Daily weight and symptom monitoring log, Zones magnet, [facility] contact information
--- NOTE | 2018-10-05 17:10 | NUR ---
AMBULATED INTO BATHROOM AND SAT ON BED TO EAT DINNER. DENIES CRAMPS IN LEGS AFTER WALKING. STATES HE IS FEELING "BETTER"
--- NOTE | 2018-10-05 19:10 | NUR ---
SHIFT REPORT RECEIVED FROM [facility] SARAH MURGUIA AT BEDSIDE. PT AWAKE AND RESTING IN BED. IN ROOM. PT ON RA, RR WNL. NO DISTRESS NOTED. PT DENIES NEEDS AT THIS TIME. BOARD UPDATED. CALL LIGHT IN REACH.
--- NOTE | 2018-10-05 19:58 | NUR ---
PER PT REQUEST I GAVE HIM A CUP OF ICE WITH A SPOON. PT WANTED NOTHING ELSE AT THIS TIME.
--- NOTE | 2018-10-05 21:45 | NUR ---
ASSESSMENT COMPLETE, SCHEDULED MEDICATIONS GIVEN (SEE EMAR). ACCU CHECK RESULT OF 243, 5 UNITS INSULIN SS ADMINISTERED. PT A/OX4, VSS AND RECORDED. PT COMPLIANT WITH CARE. REPORTS 6/10 PAIN, PRN OXYCODONE ADMINISTERED FOR PAIN R/T CRAMPS IN LEGS. HEAT PACK IN PLACE. PT DENIES FURTHER NEEDS, CALL LIGHT IN REACH. IN ROOM.
--- NOTE | 2018-10-05 23:30 | NUR ---
PT RESTING IN BED, EYES CLOSED, RR WNL. PT APPEARS COMFORTABLE. NO DISTRESS NOTED. IN CHAIR, DENIES NEEDS. CALL LIGHT IN REACH.
--- NOTE | 2018-10-06 00:50 | NUR ---
PT RESTING IN BED, AWAKE, RR WNL. HEAT PACK IN PLACE. PT REPORTS 3/10 PAIN AFTER LAST OXY ADMINISTRATION. WILL MONITOR. PT DENIES ADDDITIONAL NEEDS OR CONCERNS. CALL LIGHT IN REACH.
--- NOTE | 2018-10-06 05:02 | NUR ---
ASSESSMENT COMPLETE, NO NEW CONCERNS. PT AWAKE, RR WNL. NO DISTRESS NOTED. PT ON RA. PT A/OX4, REPORTS 8/10 PAIN. PRN OXYCODONE ADMINISTERED. IV SITE WNL, BLOOD RETURN NOTED. 300 MLS ICE CHIPS AT BEDSIDE. NO FURTHER NEEDS, CALL LIGHT IN REACH.
--- NOTE | 2018-10-06 06:23 | NUR ---
PT A/OX4, VSS. PT ON RA. FAMILY IN ROOM. PT SALINE LOCKED, IV SITE WNL. PAIN CONTROLLED WITH PRN OXYCODONE. PT SBA WITH AMBULATION. DIABETIC DIET, SCHEDULED ACCUCHECKS WITH INSULIN SS. NO NAUSEA THIS SHIFT. 1800 FLUIDS RESTRICTION, PT TOLERATING WELL. VOIDING QS. USES CALL LIGHT APPROPERAITELY.
--- NOTE | 2018-10-06 07:00 | NUR ---
BEDSIDE HANDOFF REPORT RECEIVED FROM PSYCHIATRIC SOCIAL WORKER SUPERVISOR RN. PT RESTING IN BED. AT BEDSIDE. PT DENIES NEEDS AT THIS TIME.
--- NOTE | 2018-10-06 07:40 | NUR ---
DID PATIENT'S BLOOD SUGAR CHECK.
--- NOTE | 2018-10-06 08:15 | NUR ---
PT SITTING ON EDGE OF BED, EATING BREAKFAST. PT RATIGN LEG CRAMP PAIN 5/10 AT THIS TIME, DECLINING PAIN MEDICATION. PT ON ROOM AIR, LUNG SOUNDS CLEAR WITH CRACKLES IN THE BASES, DENIES SOB. PT TOLERATING CARDIAC DIET, FOLLWOING RESTRICITION WELL, BOWEL TONES ACTIVE, SENNA HELD DUE TO MULTIPLE BM YESTERDAY. PT WITH BLE EDEMA, WORSE IN LEFT LEG THAN RIGHT. CMS INTACT. PT SALIEN LOCKED, IV LASIX GIVEN. DISCUSSED PLAN OF CARE FOR THE DAY. PT REQUESTING TO WALK TODAY AND SHOWER. PT DENIES OTHER NEEDS AT THIS TIME.
--- NOTE | 2018-10-06 12:15 | NUR ---
PT BLOOD GLUCOSE 228, GIVEN 5 UNITS SS HUMALOG GIVE. PT COMPLAINT OF MOUTH SORE, ASSESSED, PT GIVEN SALT WATER SWISH. PT DENIES OTHER NEEDS AT THIS TIME.
--- NOTE | 2018-10-06 15:15 | NUR ---
PT COMPLAINT OF PAIN WHILE STANDING IN BATHROOM, GIVEN 500 MG TYLENOL. PT OFFERED ORAGEL FOR MOUTH SORE, PT DECLINING BECAUSE DENTURES ARE IN PLACE, PT REQUESTIGN ORAGEL THIS EVENING. PT DENIES OTHER NEEDS AT THIS TIME.
--- NOTE | 2018-10-06 17:45 | NUR ---
PT GIVEN 1 UNIT SS HUMALOG FOR BLOOD GLUCOSE 142. PT ASSISTED TO WALK IN PALACIOS, COMPLETED 2 LAPS AROUND NURSING FLOOR. PT ASSISTED BACK TO BED. PT COMPLAINT OF INCREASED LEG CRAMP PAIN, TYLENOL NOT EFFECTIVE.
--- NOTE | 2018-10-06 18:20 | NUR ---
DR. JOLLEY NOTIFED OF PT COMPLAINT OF PAIN AND REQUEST FOR OXYCODONE, DR. JOLLEY TO PLACE NEW ORDER.
--- NOTE | 2018-10-06 19:05 | NUR ---
SHIFT REPORT RECEIVED FROM DAYSHIFT SARAH BORJA AT BEDSIDE. PT RESTING IN BED, AWAKE, FAMILY AT BEDSIDE. PT ON RA, NO DISTRESS NOTED. PT DENIES NEEDS OR CONCERNS AT THIS TIME. CALL LIGHT IN REACH.
--- NOTE | 2018-10-06 21:58 | NUR ---
PT CALLED WITH 8/10 PAIN IN HIS RIGHT LEG. ADMINISTERED OXYCODONE PO 5MG AT THIS TIME. HE IS REQUESTING MORE FOOD AT THIS TIME, AFTER HAVING SF JELLO AND CHEESE STICKS ABOUT AN HOUR AGO. CHECKING WITH PRIMARY NURSE TO WHAT ELSE WE CAN GIVE HIM AT THIS TIME. CALL LIGHT IS CLOSE.
--- NOTE | 2018-10-06 22:20 | NUR ---
ASSESSMENT COMPLETE, SCHEDULED MEDICATIONS GIVEN (SEE EMAR). VSS, PT ON RA, RR WNL. FAMILY IN ROOM WITH PT. PT REPORTS PAIN IN CRAMPS, REPORTS THAT PAIN IS SLOWLY IMPROVING SINCE RECENT PRN OXY. WILL MONITOR. +2 PITTING EDEMA NOTED IN BLE, PT ENCOURAGED TO ELEVATE EXTREMITIES. NO FURTHER NEEDS, CALL LIGHT IN REACH.
--- NOTE | 2018-10-07 01:18 | NUR ---
PT REPORTS CRAMPING PAIN IN RIGHT LEG AND BACK, RATES 9/10. PRN TYLENOL ADMINSITERED. HEAT PACK IN PLACE. PT REPOSITIONING IN BED AND INSTRUCTED TO NOTIFY THIS RN IF PAIN CONTINUES. PT VERBALIZES UNDERSTANDING. CALL LIGHT IN REACH.
--- NOTE | 2018-10-07 06:37 | NUR ---
ASSESSMENT COMPLETE, VSS AND RECORDED ALONG WITH I&O'S. PT A/OX4, DENIES PAIN. APPEARS COMFORTABLE. NO NEEDS AT THIS TIME, FAMILY IN ROOM. CALL LIGHT IN REACH.
--- NOTE | 2018-10-07 07:00 | NUR ---
BEDSIDE HANDOFF REPORT RECEIVED FROM EYE PHYSICIAN RN. PT RESTING IN BED, AT BEDSIDE. PT PROVIDED COFFEE PER FLUID RESTRICTION. PT DENIES OTHER NEEDS AT THIS TIME.
--- NOTE | 2018-10-07 07:50 | NUR ---
PATIENT SITTING UP IN BED. IN ROOM. CALL LIGHT WITHIN REACH. NO OTHER NEEDS AT THIS TIME
--- NOTE | 2018-10-07 08:53 | NUR ---
PT RESTIGN IN BED. PT ON ROOM AIR, LUNG SOUNDS CLEAR, DENIES SOB AFTER NEB TREATMENT. PT COMPLAINT OF PAIN TO RIGHT HIP AND BACK, GIVEN 5 MG OXYCODONE PER ORDER. BOWEL TONES ACTIVE, DENIES NAUSEA, SENNA GIVEN, TOLERATING ADA DIET. PT WITH EDEMA TO BLE, 1-2+, IMPROVED FROM YESTERDAY, IV LASIX GIVEN. DISCUSSED PLAN OF CARE FOR THE DAY, INCLUDING WALKING IN PALACIOS AND SHOWER. PT DENIES OTHER NEEDS AT THIS TIME.
--- NOTE | 2018-10-07 09:33 | NUR ---
PATIENT RESTING IN BED. IN ROOM. VITAL SIGNS AND I&O DONE. PATIENT GOEST TO USE BATHROOM. PATIENT USES A WALKER. ONE PERSON ASSISTING. PATIENT BACKS TO BED. CALL LIGHT WITHIN REACH. NO OTHER NEEDS AT THIS TIME
--- NOTE | 2018-10-07 12:37 | NUR ---
PT GIVEN 3 UNITS SS HUMALOG FOR BG 179. PT PROVIDED MILK AND ICE CHIPS PER FLUID RESTRICTION. IV LASIX GIVEN. PT DENIES OTHER NEEDS AT THIS TIME.
--- NOTE | 2018-10-07 13:23 | NUR ---
PATIENT RESTING IN BED. IN ROOM. VITAL SIGNS AND I&O DONE. ICE GIVEN. CALL LIGHT WITHIN REACH. NO OTHER NEEDS AT THIS TIME
--- NOTE | 2018-10-07 14:33 | NUR ---
PATIENT WALKING IN THE HALLWAY. PATIENT BACKS TO BED. CALL LIGHT WITHIN REACH. NO OTHER NEEDS AT THIS TIME
--- NOTE | 2018-10-07 16:49 | NUR ---
PATIENT RESTING IN BED. IN ROOM. PATIENT REFUSED SHOWER TODAY BECAUSE HE TOOK A SHOWER YESTERDAY. CALL LIGHT WITHIN REACH. NO OTHER NEEDS AT THIS TIME.
--- NOTE | 2018-10-07 17:05 | NUR ---
PT GIVEN 1 UNIT SS HUMALOG FOR BLOOD GLUCOSE 169. PT EATING DINNER. PT HAS CONSUMED 1500 ML OF FLUID RESTRICTION, PT NOTIFIED THAT HE HAS 300 ML FOR OVER NIGHT, PT VERBALIZED UNDERSTANDING. OPT DENIES OTHER NEEDS AT THIS TIME.
--- NOTE | 2018-10-07 17:30 | NUR ---
PATIENT SITTING UP IN BED. IN ROOM. VITAL SIGNS AND I&O DONE. CALL LIGHT WITHIN REACH. NO OTHER NEEDS AT THIS TIME
--- NOTE | 2018-10-07 17:40 | NUR ---
PT ON ROOM AIR, LUNG SOUNDS CLEAR. PT CONTINUES TO HAVE PAIN TO RIGHT LEG/HIP, XRAY COMPLETED, PAIN WELL CONTROLLED WITH PRN OXYCODONE. PT GIVEN IV LASIX X2, QS URINE. IV SALINE LOCKED. TOLERATING ADA/CARDIAC DIET WITH FLUID RESTRICTION, PT HAS 300ML REMAINING. PT INDEPENDENT, WALKED IN PALACIOS WITH WALKER. EDEMA 1+ TO BLE, IMPROVED FROM YESTERDAY. PLAN FOR DC ON WEDNESDAY AFTER IRON INFUSION.
--- NOTE | 2018-10-07 21:15 | NUR ---
WHEEL AND AXLE INSPECTOR ROUNDING NOTE. PT RESTING AT BEDSIDE. USING COMPUTER AT BEDSIDE. PRIMARY RN IN ROOM ADMINISTERING MEDICATION. PT DENIES NEEDS AT THIS TIME. CALL LIGHT IN REACH. WHITE BOARD UPDATED.
--- NOTE | 2018-10-07 21:19 | NUR ---
UP IN EDGE OF BED, VISITING WITH FAMILY, CBG 161, RECEIVED 1 UNIT OF INSULI. NO C/O CP OR SOB. SL L FA INTACT, PATENT. CONTINUES ON FLUID RESTRICTION
--- NOTE | 2018-10-07 22:34 | NUR ---
SITTING UP IN BED, C/O 6/10 LEGS PAIN, MEDICATED WITH OXYCONTIN 5MG PO. CONTINUES TO TOLERATE FLUID RESTRICTION. CALL LIGHT AT BEDSIDE, ROOMING IN
--- NOTE | 2018-10-07 22:46 | NUR ---
VS and I&OS were complete.
--- NOTE | 2018-10-07 23:33 | NUR ---
resting, no further c/o pain. eyes closed, no resp distress, no c/o sp. continues on fluid restriction. call light at bedside. rooming in
--- NOTE | 2018-10-08 03:35 | NUR ---
RESTING, NO DITRESS, CALL LIHGT AT BEDSIDE, FAMILY IN ROOM
--- NOTE | 2018-10-08 04:53 | NUR ---
CURRENTLY AWAKE, WATCHING TV, ON ROOM AIR, WAS MEDICATED X1 WITH OXYCONTIN WITH GOOD PAIN RELIEF. HAS KPAD TO BACK. DECREASE SCROAL AND LEG EDEMA, SCROTOL STILL RED GETS NYSTATIN POWDER THAT HE SELF APPLY. CALL LIGHT AT BEDSIDE
--- NOTE | 2018-10-08 07:10 | NUR ---
BEDSIDE HANDOFF REPORT RECIVED FROM BIT SHAVER RN. PT RESTIGN IN BED. PT COMPLAINT OF PAIN, RN MARILEE AT BEDSIDE TO GIVE OXYCODONE AND TYLENOL. PT DENIES OTHER NEEDS AT THIS TIME.
--- NOTE | 2018-10-08 07:15 | NUR ---
PT RESTING IN BED WATCHING TV. PT REPORTS 9/10 PAIN TO RIGHT LEG. PRN PO PAIN PILLS ADMINISTERED PER PT REQUEST. CALL LIGHT AND H20 IN REACH. NO FURHTER NEEDS/CONCERNS VOICED.
--- NOTE | 2018-10-08 09:20 | NUR ---
PT RESTING IN BED. PT COMPLAINT OF FEELING CONSTIPATED, DISCUSSED WITH DR. JOLLEY, NEW ORDER FOR LACTULOS. PT ON ROOM AIR, LUNG SOUNDS CLEAR WITH DIMINISHED BASES. PT EDEMA IMPROVED FROM YESTERDAY, TRACE TO 1+ IN BLE CONCENTRATED AROUND ANKLES. PT TOLERATED ADA DIET, FOLLOWING RESTRICTION WELL. IV SALINE LOCKED. DISCUSSED PLAN OF CARE FOR THE DAY. PT DENIES OTHER NEEDS AT THIS TIME.
--- NOTE | 2018-10-08 09:55 | NUR ---
PATIENT SITTING ON SIDE OF BED, IN ROOM. FRESH WATER GIVEN. CALL LIGHT IN REACH. NO FURTHER NEEDS AT THIS TIME.
[2018-10-08] MEDS ORDERED: DIGOX125 MCG PO (10:59)
[2018-10-08] MEDS ORDERED: CARVEDILOL12.5 MG PO (11:00)
[2018-10-08] MEDS ORDERED: OXYCODONE HCL5 MG PO (11:00)
[2018-10-08] MEDS ORDERED: NEURONTIN300 MG PO (11:01)
[2018-10-08] MEDS ORDERED: LACTULOSE20 GM/30 M PO (11:01)
[2018-10-08] MEDS ORDERED: POTASSIUM CHLO10 ME2 PO (11:02)
[2018-10-08] MEDS ORDERED: TORSEMIDE20 MG PO (11:03)
[2018-10-08] MEDS ORDERED: RAMIPRIL10 MG PO (11:05)
--- NOTE | 2018-10-08 12:40 | NUR ---
PT GIVEN 3 UNITS SS HUMALOG FOR BLOOD GLUCOSE 185. PT PROVIDED WITH ICE CHIPS. PT DENIES OTHER NEEDS AT THIS TIME.
--- NOTE | 2018-10-08 14:04 | NUR ---
PATIENT UP AMBULATING IN HALLWAY EARLIER. PATIENT NOW SITTING UP IN BED, BEDSIDE. CALL LIGHT IN REACH. NO FURTER NEEDS AT THIS TIME.
--- NOTE | 2018-10-08 14:09 | NUR ---
PT WALKED IN PALACIOS, PT COMPLAINT OF HIP PAIN WHILE WALKING, REQUESTING PAIN MEDICATION. PT GIVEN 500 MG TYLENOL AND 5 MG OXYCODONE. AFTERNOON ASSESSMENT COMPLETED, NO ACUTE CHANGES. PT VOIDING QS, HAD LARGE BM TODAY. PT DENIES OTHER NEEDS AT THIS TIME.
--- NOTE | 2018-10-08 17:45 | NUR ---
SS HUMALOG HELD FOR BLOOD GLUCOSE 129. METFORMIN AND POTASSIUM GIVEN PER ORDER. PT PROVIDED WITH ICE CHIPS. PT DENIES OTHER NEEDS AT THSI TIME.
--- NOTE | 2018-10-08 17:49 | NUR ---
PATIENT SITTING ON EDGE OF BED WATCHING TV, IN ROOM. CALL LIGHT IN REACH. NO FURTER NEEDS AT THIS TIME.
--- NOTE | 2018-10-08 18:34 | NUR ---
PT ON ROOM AIR, LUNG SOUNDS CLEAR. PT INDEPENDENT WITH WALKER, STAEDY ON FEET, WALKED IN PALACIOS. PT WITH PAIN TO RIGHT LEG AND HIP, OXYCODOEN AND TYLENOL GIVEN X2. PT TOLERATIGN ADA DIET WITH FLUID RESTRICITON. EDEMA TO BLE TRACE TO 1+, IMPROVED FROM YESTERDAY, TORSEMIDE STARTED TODAY. PT CONSTIPATED, GIVEN LACTULOSE, HAD 2 BM TODAY, VOIDED QS. PLAN FOR DC TOMORROW AFTER IRON INFUSION.
--- NOTE | 2018-10-08 20:19 | NUR ---
PT CURRENTLY AWAKE, SITTING IN CHAIR, WATCHING TV. K PAD TO R LEG. HAS BEEN MEDICTAED WITH OXYCODONE 5MG X2 AND TYLENOL X1 WITH GOOD TO FAIR RELIEF. TOLERATING DIET AND FLUID RESTRICTION, ON ROOM AIR, TODAYS STANDING SCALE WEIGHT 180.5#. DECREASED SCROTAL AND FEET EDEMA NOTED.
--- NOTE | 2018-10-08 22:56 | NUR ---
DENTURE LABORATORY TECHNICIAN ROUNDING NOTE. PT RESTING IN BED WATCHING TV. REQUESTS MORE ICE CHIPS, PROVIDED. PT DENIES QUESTIONS OR CONCERNS. WHITE BOARD UPDATED. CALL LIGHT IN REACH.
--- NOTE | 2018-10-09 06:06 | NUR ---
MEDICATED WITH TYLENOL 500MG PO C/O 10/24 R LEG 'YUMIKO HORSE'. WALKING IN ROOM, NO TOHER REQUESTS OR C/O, CALL LIGHT AT BEDSIDE. IN ROOM
--- NOTE | 2018-10-09 06:28 | NUR ---
PT CURRENTLY AWAKE, K PAD TO R LEG AND BACK. HAS BEEN MEDICATED WITH OXYCONTIN 5 MG X2 AND TYLENOL X1 WITH GOOD TO FAIR PAIN RELIEF FOR 'JUMPING R LEG". CBG 155 WITH INSULIN COVERAGE. CONTINUES TO TOLERATE DIET/ FLUID RESTRICTION WELL. DECREASED EDEMA OF SCROTUM AND LEGS. TODAYS STNDING WEIGHT 180.5#. PT WAITING TO GO HOME AFTER IRON INFUSION THIS AM. ROOMING IN. NO REQUETS. CALL LIGHT AT PTS BEDSIDE
--- NOTE | 2018-10-09 07:34 | NUR ---
BEDSIDE REPORT RECIEVED FROM MAXWELL SMITH. PT RESTING IN BED WITH HIS AT THE BEDSIDE. PT APPEARS IN NO DISTRESS AT THIS TIME. CALL CHA WITHIN REACH.
--- NOTE | 2018-10-09 08:02 | NUR ---
PT SITTING UP AT THE BEDSIDE AND HE STATES HIS RIGHT LEG PAIN IS WELL CONTROLED AT THIS TIME. HE DENIES ANY SOB OR NEW PROBLEMS. CALL CHA WITHIN REACH.
--- NOTE | 2018-10-09 09:53 | NUR ---
INFUSION COMPLETE NO SIGNS OF REACTION, VSS.
== END 2018-10-09 10:45 | disposition home or self-care (01) | DRG 292 ==
LOC: ED 14:11 → MS 17:14
PROVIDERS: ADMIT Student in an Organized Health Care Education/Training Program
DX: I50.23 Acute on chronic systolic (congestive) heart failure (principal); K92.2 Gastrointestinal hemorrhage, unspecified; J44.9 Chronic obstructive pulmonary disease, unspecified; G47.33 Obstructive sleep apnea (adult) (pediatric); I25.9 Chronic ischemic heart disease, unspecified; I25.10 Atherosclerotic heart disease of native coronary artery without angina pectoris; I48.2 Chronic atrial fibrillation; E78.5 Hyperlipidemia, unspecified; E11.22 Type 2 diabetes mellitus with diabetic chronic kidney disease; I12.9 Hypertensive chronic kidney disease with stage 1 through stage 4 chronic kidney disease, or unspecified chronic kidney disease; N18.3 Chronic kidney disease, stage 3 (moderate); G25.81 Restless legs syndrome; M54.5 Low back pain; G89.29 Other chronic pain; K59.00 Constipation, unspecified; D50.0 Iron deficiency anemia secondary to blood loss (chronic); M62.838 Other muscle spasm; M54.16 Radiculopathy, lumbar region; I34.0 Nonrheumatic mitral (valve) insufficiency; Z87.891 Personal history of nicotine dependence; Z95.1 Presence of aortocoronary bypass graft; Z95.810 Presence of automatic (implantable) cardiac defibrillator; Z79.84 Long term (current) use of oral hypoglycemic drugs; Z79.02 Long term (current) use of antithrombotics/antiplatelets; Z79.51 Long term (current) use of inhaled steroids; Z79.899 Other long term (current) drug therapy
CPT/HCPCS: 36415; 51798; 71046; 73502; 76700; 80048; 80053; 80162; 81001; 82550; 82607; 82728; 82746; 83540; 83690; 83735; 83880; 84466; 85025; 85610; 93306; 94640; 97162; 97165; 99284-25; C9113; J1120; J1650; J1815; J1940; Q0138